=== PATIENT | female | born 1970 | race Asian ===

== ENCOUNTER → 2016-05-31 | Outpatient (CLI) | payer OTHER ==
--- NOTE | 2016-05-31 16:45 | DX ---
Right foot, 2 views. History: EVALUATE ARTHRITIS Comparison examination:none available Findings: Moderate joint space narrowing of the first metatarsal phalangeal joint is compatible with osteoarthritis. Other joint spaces are preserved. Alignment is normal. No fracture. Impression: Moderate first MTP osteoarthritis.
--- NOTE | 2016-05-31 16:46 | DX ---
Sacroiliac joints, 3 views. 05/31/2016. History: Evaluate for sacroiliitis. Comparison Study: June 02, 2013. Findings: Mild subchondral sclerosis involves the upper aspects of both sacroiliac joints compatible with mild osteoarthritis similar to previous examination. No erosive changes identified, and joint sp aces are preserved. Impression: 1. Mild bilateral sacroiliac degenerative changes, stable.
== END ==
LOC: BMCIMAGING 16:02
PROVIDERS: ATTEND Internal Medicine Rheumatology
DX: M19.071 Primary osteoarthritis, right ankle and foot (principal); M53.3 Sacrococcygeal disorders, not elsewhere classified; K51.90 Ulcerative colitis, unspecified, without complications; M46.1 Sacroiliitis, not elsewhere classified; M79.671 Pain in right foot

== ENCOUNTER → 2016-06-20 | Outpatient (CLI) | payer OTHER | LOC: FIMAGING 19:07 | PROVIDERS: ATTEND Physician Assistant | DX: M75.82 Other shoulder lesions, left shoulder (principal); M75.52 Bursitis of left shoulder ==

== ENCOUNTER 2017-02-17 10:47 | Emergency (ER) | payer OTHER ==
[2017-02-17 12:28] VITALS: RESP 18; O2SAT 99
--- NOTE | 2017-02-17 12:54 | EDPHY ---
General Narrative: CHIEF COMPLAINT: Forehead laceration HISTORY OF PRESENT ILLNESS: Patient complains of forehead laceration that happened at 10:30 a.m. this morning. She was moving a complex been with the lid struck her in the forehead. She does not know she lost consciousness. She has a severe headache. She has bleeding from the forehead laceration. She has no visual disturbance. No nausea or vomiting. No chest pain or injury anywhere else. No other associated complaints or modifying factors. Tetanus is up-to-date TIME OF INJURY: 10:30 a.m. today TETANUS STATUS: Up-to-date less than 5 years ago MEDICAL/SURGICAL/SOCIAL HISTORY: Reviewed REVIEW OF SYSTEMS: Ten systems reviewed and are negative unless otherwise noted in the HPI EXAMINATION General Appearance: Alert, no distress Head: normocephalic. 5 cm laceration on the left forehead just above the eyebrow. There is no active bleeding. No exposure of the galea or frontalis muscle. No foreign body. No Orellana sign. No raccoon eyes. She is exquisitely tender on the frontal skull bone. Cardiovascular: Pulses normal throughout. Brisk cap refill. Pulses symmetric distally. Neurological: GCS 15. Cranial nerves 2-12 grossly intact. A&O, sensory symmetric, strength symmetric Skin: Warm and dry, no rash. Laceration as above Extremities: Nontender, no pedal edema DIFFERENTIAL DIAGNOSES: Including but not limited to laceration, complex laceration, laceration foreign body, laceration with muscular injury, intracranial hemorrhage, concussion MDM: 11:50 a.m. Laceration to the forehead. She is exquisitely tender on the frontal portion of the skull. This is out of proportion to the examination, thus I have ordered CT scan of the head. She is awake and alert no acute distress. Laceration has been anesthetized 12:50 p.m. Complex laceration of the left forehead. CT scan of the head is unremarkable for any acute findings. The wound has been closed without complication. Tetanus is up-to-date. Wound care discussed. Discharged in stable condition. PROCEDURE: Laceration repair Consent: Verbal Location: Left forehead Length of repair: 5 cm Complexity: Complex Layer involvement: Single Anesthesia: Local per 1% lidocaine plain. 10 mL Irrigation: Extensive Debridement: None Procedure description: Following good anesthesia, the wound was copiously irrigated. Wound bed was explored and there is no foreign body noted. No exposure of the frontalis muscle or galea. Wound borders were approximated well with good hemostasis. Tolerated well without complication. Suture/Staple material: 6-0 Prolene. Eight simple running sutures. Wound care: Routine as discussed Suture/Staple removal: 5-7 Days ED Precautions: Worsening pain. Erythema, edema, cyanosis, pallor, paresthesia or anesthesia. - History Smoking Status: Never smoked - Objective Vital Signs: Initial Vital Signs Temperature (C) 97.5 F 02/17/17 10:58 Heart Rate 91 02/17/17 10:58 Respiratory Rate 16 02/17/17 10:58 Blood Pressure 134/90 H 02/17/17 10:58 O2 Sat (%) 100 02/17/17 10:58 O2 Delivery Mode Room Air Allergies/Adverse Reactions: No Known Allergies Allergy (Verified 10/20/14 08:15) Home Medications: Medication Instructions Recorded Amphet Asp and D/Amphet [Adderall] 10 mg PO 10/20/14 Azathroprine 10/20/14 Hydrocortisone Rectal Suspension 10/20/14 Mesalamine [Lialda] 2.4 gm PO DAILY 10/20/14 Hydrocortisone Acetate [Anucort-Hc] 25 mg RC BID #7 supp.rect 06/08/15 Departure - Departure Disposition: Home, Routine, Self-Care Clinical Impression: Forehead laceration Qualifiers: Encounter type: initial encounter Qualified Code(s): S01.81XA - Laceration without foreign body of other part of head, initial encounter Closed head injury Qualifiers: Encounter type: initial encounter Qualified Code(s): S09.90XA - Unspecified injury of head, initial encounter Condition: Good Instructions: Care For Your Stitches (ED), Laceration (ED) Additional Instructions: 1. Daily wound care with bacitracin for 3 days 2. Keep the wound covered for the duration of the sutures 3. Return here in 5-7 days for suture removed Referrals: Aisha Lopez MD [Primary Care Provider] - As per Instructions
[2017-02-17 13:15] VITALS: BP 132/100; PULSE 85; TEMP 98.4
== END 2017-02-17 13:15 | disposition home or self-care (01) ==
PROC: 0HQ1XZZ Repair Face Skin, External Approach (ICD-10-PCS; principal; 2017-02-17)
DX: S01.81XA Laceration without foreign body of other part of head, initial encounter (principal); W22.8XXA Striking against or struck by other objects, initial encounter

== ENCOUNTER 2017-10-16 17:06 | Emergency (ER) | payer OTHER ==
--- NOTE | 2017-10-16 17:43 | EDPHY ---
General - History Smoking Status: Never smoked Time Seen by Provider: 10/16/17 17:35 Narrative: CHIEF COMPLAINT: Right arm numb and weak HISTORY OF PRESENT ILLNESS: Patient presents with complaints of right arm weakness, tingling and numbness. She states that she awoke at 10am and "a could feel my right hand removed my wrist. Feels really weird and hot and cold." Symptoms started the ulnar when she awoke. She went to bed feeling normal. She states the symptoms have been constant throughout the day. They have not worsened. They have not improved. She has difficulty straightening her wrist and fingers. She cannot fully feel her hand or fingers. The sensation changes are described to the back of the right hand only. She has no headache. She has chronic may pain that is unchanged. No trauma to the head or neck. No alcohol ingestion last night. She does not know how she sleeps. She denies any previous incidence of this. No other associated complaints or modifying factors. Right-hand dominant REVIEW OF SYSTEMS: Ten systems reviewed and are negative unless otherwise noted in the HPI PCP: Dr. Lopez SPECIALISTS: Dr. Patino, orthopedist Inspector And Clerk PAST MEDICAL HISTORY: Arthritis, bipolar disorder, ulcerative colitis PAST SURGICAL HISTORY: Rotator cuff repair with biceps tendon repair SOCIAL HISTORY: Lives here independently FAMILY HISTORY: Noncontributory EXAMINATION General Appearance: Alert, no distress Head: normocephalic, atraumatic Eyes: Pupils equal and round, no conjunctival pallor or injection. EOM symmetric ENT, Mouth: Mucous membranes moist Neck: Normal inspection, supple, non-tender Respiratory: No retractions or distress Cardiovascular: Regular rate. Symmetric radial pulses 2+. Brisk cap refill the fingers right hand Back: non-tender, no bony abnormalities Neurological: A&O. There is weakness at 2/5 on the right upper extremity involving the radial nerve. Decreased sensation in the right radial nerve significantly less than left upper extremity. Strength of the right shoulder and elbow was intact. Skin: Warm and dry, no rash. No petechiae, purpura, cyanosis or pallor Extremities: Tenderness of the right wrist and dorsum of the right hand. Range of motion of the left upper x-rays unremarkable. Range of motion of the right shoulder and elbow unremarkable. Range of motion of the right wrist and extensor apparatus is significantly decreased when compared to the left. Psychiatric: Mood and affect normal DIFFERENTIAL DIAGNOSES: Including but not limited to radial nerve palsy, neurapraxia, TIA, CVA, cervical radiculopathy MDM: 5:44 p.m. Weakness and decreased sensation in the right radial nerve distribution upon waking this morning. She has no other symptoms that would suggest TIA or stroke. This is isolated to the right radial nerve. She has good signs of perfusion with brisk cap refill and warm extremity. I will discuss with Dr. Moreno 6:20 p.m. Case discussed with Dr. Moreno and neurologist Dr. Yi. Dr. Yi does not recommend any imaging at this time. He would like the patient to be placed in a splint in neutral position. He would like her to be seen in his office for further testing and likely EMG testing at 3 weeks. He requests no further workup in the emergency department. 6:30 p.m. Patient re-evaluated. I discussed my conversation with Dr. Yi. She is comfortable with our plan. We discussed removing the splint for showering. This point we placed in a position that allows padding of the arm. She has instructions to take anti-inflammatories. She has strict ED precautions for any worsening symptoms, difficulty bending or straightening the elbow, difficulty moving the shoulder, headache, neck pain. She is comfortable this plan and discharged home stable condition SUPERVISION: Patient was independently examined, but I discussed the case with my secondary supervising physician Dr. Moreno ([facility]) Medical Decision Making: PHYSICIAN DOCUMENTATION: The patient was evaluated and managed by the Physician Snow Removing Supervisor and myself. I examined the patient myself. History confirmed as no trauma, has difficulty extending her right wrist. Physical findings as follows: Some slight decrease in sensation over the dorsal part of the thenar eminence, weakness in extending the wrist. Otherwise has good welding setter strength and normal strength and sensation in the elbow and shoulder on the right-hand side. No bony tenderness. No swelling or redness or change in temperature, normal perfusion. Compartments normal in the RUE. Fluent speech. Appropriate Neurology consultation obtained over the phone, will follow up with the clinic this week, warned the patient it' s important that the specialist sees her in the office to confirm diagnosis this week. More likely to be peripheral neuropathy than central brain or spinal cord problem. I am the secondary supervising physician. (Moreno,Randy S) - Objective Vital Signs: Initial Vital Signs Temperature (C) 36.7 C 10/16/17 17:13 Heart Rate 84 10/16/17 17:13 Respiratory Rate 18 10/16/17 17:13 Blood Pressure 129/78 H 10/16/17 17:13 O2 Sat (%) 97 10/16/17 17:13 O2 Delivery Mode Room Air Allergies/Adverse Reactions: No Known Allergies Allergy (Verified 10/16/17 17:11) Home Medications: Medication Instructions Recorded Adderall 10 MG (*) 10/16/17 Azathioprine Sodium 10/16/17 Stonewall Carbonate 10/16/17 Seroquel 10/16/17 Departure - Departure Disposition: Home, Routine, Self-Care Clinical Impression: Acute radial nerve palsy Qualifiers: Laterality: right Qualified Code(s): G56.31 - Lesion of radial nerve, right upper limb Condition: Good Instructions: Splint Care (ED), Radial Nerve Palsy (ED) Additional Instructions: 1. Ibuprofen 400-600 mg every 6-8 hours as needed for pain 2. Keep your right wrist splint in place at all times except when showering 3. You may need to apply soft padding loosely to right upper extremity while sleeping 4. Contact Dr. Yi, neurologist on-call for outpatient care to be seen this week 5. Return to emergency department for any worsening symptoms, weakness of the elbow or shoulder, pain in the neck, or sudden changes Referrals: Mike Yi DO [Doctor of Osteopathy] - As per Instructions Stand Alone Forms: Work Excuse
[2017-10-16 18:57] VITALS: BP 133/87
== END 2017-10-16 18:57 | disposition home or self-care (01) ==
DX: G56.31 Lesion of radial nerve, right upper limb (principal)
CPT/HCPCS: 99282; L3908; L3984

== ENCOUNTER 2018-04-27 18:20 | Emergency (ER) | payer OTHER ==
--- NOTE | 2018-04-27 19:04 | EDPHY ---
HPI/HX/ROS/PE/MDM Narrative: CLINICAL IMPRESSION: Bilateral hand pain ASSESSMENT/PLAN: Patient is a 47-year-old female with a significant history of osteoarthritis, ulcerative colitis who is noncompliant on Humira and bipolar disorder. Patient is nontoxic-appearing, she is in no acute distress on arrival. Physical examination revealed generalized enlarged and tender MCP joints with no erythema or calor. Bilateral hand x-rays reveal no acute bony abnormality. Her history and physical examination is most consistent with bilateral hand pain ; I suspect arthritic in nature especially in light of her underlying ulcerative colitis. Her pain has been ongoing an escalating over the last several months; there was no evidence of acute fracture, dislocation, compartment syndrome, DVT, cellulitis, septic arthritis or neurovascular compromise. She she understands that she should not take anti-inflammatories such as NSAIDs secondary to her ulcerative colitis and will otherwise continue Tylenol. She specifically requests intra-articular steroid injection which I explained is not performed in the emergency department. She is well established with PCP and will call to schedule follow-up. She expresses on multiple occasions her dislike for medical follow-up however is amenable to following up with her primary care provider. She understands that she may need additional testing and possibly even physical therapy as an outpatient. Return precautions discussed-patient to return to the emergency Department for significantly worsening or uncontrolled pain, significant swelling, numbness or tingling of the extremity, paleness or coolness of her digits, fever or for any other concerning symptom. The patient verbalizes understanding and she is in agreement with this plan. Case, results and plan of care all discussed with Dr. Martinez who agrees with above plan. DIFFERENTIAL DX: Fracture, dislocation, septic joint, gout, arthritis CHIEF COMPLAINT: Bilateral hand pain HPI: Patient is a 47-year-old female with a history of ulcerative colitis who is noncompliant on her Humira, arthritis and bipolar disorder who presents with ongoing and worsening bilateral hand pain. Patient reports this past September she had a fall and subsequently sustained a wrist injury, has had intermittent pain on and off since this time. Patient had an additional injury this past December where she fell onto her right wrist. Since this time she has noticed increased and worsening left thumb joint pain as well as increased generalized joint pain of her bilateral hands. Patient endorses dissatisfaction with her gastroenterologists, microbiology laboratory manager and primary care provider which is why she is noncompliant with medications and follow-up. She states that she does not like to go to the doctor's office. Patient understands that she is not supposed to take anti-inflammatories however took 3 Aleve over the last several days. Pain has not improved with Tylenol. She denies any numbness or tingling of her extremities. Denies any recent injury or trauma. Pain has been ongoing and mildly escalating over the last several weeks to months. She feels that it was exacerbated as she was trying to reach finish a dresser that she just purchased. PAST MEDICAL HISTORY: Bipolar disorder, ulcerative colitis Pertinent Past Surgical History: Denies Family History: Noncontributory Social History: Denies illicit drug use, alcohol or cigarette smoking ROS: A full 10 point review of systems was negative except for those mentioned in HPI. PHYSICAL EXAM: General Appearance: Alert, oriented, appropriate, cooperative, NAD, well hydrated, non-toxic appearing, VSS, no hypoxia. HEENT: TMs are clear bilaterally. Oropharynx clear is no erythema or exudates, no tonsillar hypertrophy or asymmetry. Dentition without abnormality. Eyes: PERRLA, no acute vision change, nystagmus, swelling, discharge, pain or photosensitivity. Conjunctiva pink, no pallor or injection Neck: Supple, nontender, no lymphadenopathy, no midline pain, FROM, no meningismus. Respiratory: There are no retractions, lungs are clear to auscultation. Cardiac: Regular rate and rhythm, no murmurs or gallops. Gastrointestinal: Abdomen is soft, nontender, bowel sounds normal, no masses/ hernia, no rigidity, guarding or focal peritoneal findings. Upper Extremities: Patient with generalized mild edema and tenderness of the MCP joints of bilateral hands. She has no carpal tenderness. There is no overlying calor or erythema. Mildly decreased range of motion secondary to pain. 2 point discrimination intact distally. Lower Extremities: Intact distal pulses, No edema, No tenderness, No cyanosis, full range of motion intact, No calf tenderness bilaterally. Skin: Warm, dry, no rashes, no nodules on palpation. MEDICAL DECISION MAKING: Patient was seen independently. Secondary supervising physician at time of evaluation was Dr. Martinez. Diagnosis: Bilateral hand pain. New, requires workup Summary: See Assessment and Plan for summary of ED visit Clinical lab tests: ordered / reviewed. Independent visualization of images, tracing, or specimens: Yes. Decision to obtain medical records or history from someone other than the patient: No Review / Summarize previous medical records: Yes Discussed patient with another provider: Dr. Martinez Patient Progress: Stable for discharge. - Data Points Imaging Results: Imaging Impressions Hand X-Ray 04/27/18 00:00 Impression: There is no acute or subacute osseous abnormality. Right Hand, 3 Views, at 7:13 PM: Bone mineralization is preserved, with no global or juxta-articular osteopenia. There is no acute fracture or dislocation. The joint spaces have a normal thickness. There are no marginal erosions or periosteal reaction. There is no chondrocalcinosis. On the lateral view, there appears to be some mild soft tissue swelling over the dorsal MCP joint level. Impression: Normal appearance of the osseous structures. Hand X-Ray 04/27/18 19:04 Impression: There is no acute or subacute osseous abnormality. Right Hand, 3 Views, at 7:13 PM: Bone mineralization is preserved, with no global or juxta-articular osteopenia. There is no acute fracture or dislocation. The joint spaces have a normal thickness. There are no marginal erosions or periosteal reaction. There is no chondrocalcinosis. On the lateral view, there appears to be some mild soft tissue swelling over the dorsal MCP joint level. Impression: Normal appearance of the osseous structures. General Time Seen by Provider: 04/27/18 18:30 Initial Vital Signs: Initial Vital Signs Temperature (C) 36.6 C 04/27/18 18:35 Heart Rate 85 04/27/18 18:35 Respiratory Rate 18 04/27/18 18:35 Blood Pressure 131/80 H 04/27/18 18:35 O2 Sat (%) 97 04/27/18 18:35 O2 Delivery Mode Room Air Allergies/Adverse Reactions: No Known Allergies Allergy (Verified 04/27/18 18:33) Home Medications: Medication Instructions Recorded Adderall 10 MG (*) 10/16/17 Seroquel 10/16/17 Departure - Departure Disposition: Home, Routine, Self-Care Clinical Impression: Bilateral hand pain Condition: Good Instructions: Arthralgia (ED) Additional Instructions: DISCHARGE INSTRUCTIONS FROM YOUR DOCTOR Thank you for visiting our emergency department today. Please keep in mind that discharge from the emergency department does not mean that there is nothing wrong - it simply means that we have not identified an emergency condition that requires further evaluation or treatment in the hospital. Please follow-up with your primary care provider, call tomorrow morning to schedule an appointment for repeat examination next week. You may need additional testing and or imaging. Continue taking Tylenol as needed for your pain, I recommend 500 mg every 4-6 hours. Do not exceed 4000 mg in a 24 hr period. People present with illnesses and injuries in different ways, and it is always possible that we have missed something. You may always return for re-evaluation if symptoms worsen or if they are not improving or if you develop new/different symptoms. Again, thank you for choosing our emergency department. We hope that you feel better. Referrals: NONE *PRIMARY CARE P,. [Primary Care Provider] - As per Instructions
[2018-04-27 20:26] VITALS: BP 112/76
== END 2018-04-27 20:23 | disposition home or self-care (01) ==
LOC: EEVIPCON 18:20
DX: M79.642 Pain in left hand (principal); M79.641 Pain in right hand; M19.90 Unspecified osteoarthritis, unspecified site; F31.9 Bipolar disorder, unspecified; K51.90 Ulcerative colitis, unspecified, without complications